=== PATIENT | male | born 1980 | race Caucasian/White ===

== ENCOUNTER 2022-02-24 09:46 | Emergency (ER) | payer OTHER, SELFPAY ==
--- NOTE | 2022-02-24 09:53 | ED.URI ---
HPI - URI/Sore Throat General Chief Complaint: Upper Respiratory Infection Stated Complaint: + COVID/FEVER/HEADACHE Time Seen by Provider: 02/24/22 09:53 Source: patient and RN notes reviewed History of Present Illness HPI Narrative: Patient is a 41-year-old male who presents the urgent care with complaints of sore throat, fatigue and possible dehydration. Patient states that he was symptomatic and tested positive for COVID on Tuesday after a direct exposure. Patient states he has been taking Tylenol and ibuprofen and the fevers have decreased along with the persistent headache. Patient states he was nauseated and vomiting a couple days ago which is since improved. Patient states his biggest concern is dehydration due to the inability to swallow. Patient denies of any shortness of breath or chest pain. No other acute complaints. No acute distress noted. Patient aware of the plan of care. Some parts of this dictation were generated by voice recognition software and may contain typographical and/or grammatical inaccuracies. Related Data Home Medications Medication Instructions Recorded Confirmed ascorbic acid (vitamin C) 500 mg 500 mg PO DAILY 06/29/21 12/04/21 tablet (Vitamin C) vitamin B complex (B 1 tablet PO DAILY 06/29/21 12/04/21 Complex-Vitamin B12 tablet) Allergies Allergy/AdvReac Type Severity Reaction Status Date / Time pertussis vaccine,fluid Allergy Intermediate Nausea and Verified 12/04/21 08:53 Vomiting Tetanus Vaccines and Toxoid Allergy Unknown Fever Verified 12/04/21 08:53 Review of Systems Review of Systems: CONSTITUTIONAL: Reports of low-grade fevers and fatigue EYES: Denies visual changes, redness, or discharge. ENT: Denies rhinorrhea, congestion, otalgia. Reports of severe sore throat CARDIOVASCULAR: Denies chest pain, palpitations, or edema. RESPIRATORY: Denies cough or dyspnea. GASTROINTESTINAL: Denies abdominal pain, nausea, vomiting, or diarrhea. GENITOURINARY: Denies dysuria or hematuria. SKIN: Denies rash or itching. MUSCULOSKELETAL: Denies back pain, joint pain, or myalgia. NEUROLOGIC: Denies headache, numbness, or weakness. All other systems reviewed are negative, except as documented in HPI. [facility] Past Medical History Medical History Abdominal pain, LUQ Acute non-recurrent sinusitis Allergic reaction Anaphylaxis Change in bowel function Chronic fatigue Diverticulitis w/ rupture & small abscess formation Left lower quadrant pain Rash Splenomegaly Surgical History Surgical History History of hernia repair History of inguinal hernia repair History of placement of ear tubes Hx of knee surgery Status post arthroscopy of hip Family History Family History Father Family history of cardiovascular disease Hypertension Grandparent Family history of cardiovascular disease Other Family history of lung cancer Family history of malignant neoplasm of brain Social History Social History Smoking status: Never smoker Second hand tobacco smoke exposure: No Alcohol intake: current Drinks per week: 6 Alcohol use details: consumes 3 miguel rarely Substance use: never Substance use type: does not use Gender identity (if verbalized by the patient): Male Spiritual care concerns: No Comments At the time of my signature, I reviewed and agree with the nursing past medical, surgical, social, and family history. There is no relevant family history pertinent to the patient complaint. Exam Narrative: GENERAL: This is a well-nourished, well-developed patient. Appears very fatigued HEAD: normocephalic, atraumatic. EYES: PERRL. Sclera clear/white. Vision is grossly intact. EARS: External ears normal, auditory canals clear and without drainage,
[2022-02-24 10:13] VITALS: BP 117/86; PULSE 88; RESP 16; TEMP 36.9; O2SAT 99
== END 2022-02-24 10:32 | disposition short-term general hospital (02) ==
PROVIDERS: Emergency Provider Nurse Practitioner Family; PCP Family Medicine
DX: U07.1 COVID-19 (principal); E86.0 Dehydration
CPT/HCPCS: 81003; 87081; 87880; 99213; G0463

== ENCOUNTER 2022-02-24 10:45 | Emergency (ER) | payer OTHER, SELFPAY ==
[2022-02-24 11:18] VITALS: BP 122/79; PULSE 86; RESP 16; TEMP 36.7; O2SAT 98
[2022-02-24 11:35] LABS: Basophils Percent Auto 0.2 % (0.2-1.2); Eosinophils Absolute Auto 0.1 K/mm3 (0-0.3); Eosinophils Percent Auto 1.6 % (0-4.4); Hematocrit 42.7 % (42.0-52.0); Immature Granulocyte Absolute 0.01 K/mm3 (0.00-0.031); Immature Granulocyte Percent A 0.2 % (0-0.5); Lymphocytes Absolute Auto 0.82 K/mm3 (0.9-3.2); Lymphocytes Percent Auto 16.4 % (18.3-44.2); Mean Corpuscular HGB Conc 35.1 g/dl (32-36); Mean Corpuscular Hemoglobin 30.9 pg (26-34); Mean Corpuscular Volume 87.9 fl (80-100); Mean Platelet Volume 10.2 fl (7.4-10.4); Monocytes Absolute Auto 0.4 K/mm3 (0.1-0.6); Monocytes Percent Auto 7.6 % (2.6-8.5); Neutrophils Absolute Auto 3.7 K/mm3 (1.3-6.7); Platelet Count Result 172 k/mm3 (150-375); Red Blood Count 4.86 M/mm3 (4.6-6.20); Red Cell Distribution Width 11.9 % (11.5-14.5)
[2022-02-24 11:45] LABS: Alanine Aminotransferase 18 U/L (6-50); Albumin Level 4.9 g/dL (3.5-5.1); Alkaline Phosphatase 49 U/L (38-126); Anion Gap 16 mmol/L (8-16); Aspartate Amino Transferase 28 U/L (17-59); Bilirubin,Total 0.9 mg/dL (0.2-1.3); Blood Urea Nitrogen 11 mg/dL (9-20); Calcium 9.4 mg/dL (8.4-10.2); Carbon Dioxide 25 mmol/L (22-30); Chloride 96 mmol/L (98-107); Estimated CRCL calculation 113 ml/min; Estimated Glomerular Filt Rate > 60; Glucose 103 mg/dL (65-110); Lipase 32 U/L (23-300); Potassium 4.6 mmol/L (3.4-5.0); Sodium 137 mmol/L (137-145)
--- NOTE | 2022-02-24 12:26 | ED.URI ---
HPI - URI/Sore Throat General Chief Complaint: Upper Respiratory Infection Stated Complaint: covid +, dehydration Time Seen by Provider: 02/24/22 12:06 History of Present Illness HPI Narrative: Pt presents with URI symptoms for one week. Pt started with nasal congestion and CHAPMAN a week ago and a fever. Pt tested positive for covid 5 days ago. Pt says he has had some episodes of vomiting but has had trouble drinking enough fluids due to sore throat. Pt tested negative for strep at [facility] last week. Related Data Allergies Allergy/AdvReac Type Severity Reaction Status Date / Time pertussis vaccine,fluid Allergy Intermediate Nausea and Verified 02/24/22 11:22 Vomiting Tetanus Vaccines and Toxoid Allergy Unknown Fever Verified 02/24/22 11:22 Review of Systems Review of Systems: All systems reviewed & are unremarkable except as noted in HPI and below Constitutional: Constitutional: Reports chills, Reports fatigue and Reports fever(s) ENT: Reports as per HPI, Reports nasal congestion and Reports sore throat Gastrointestinal: Gastrointestinal: Reports nausea and Reports vomiting Musculoskeletal: Musculoskeletal: Reports myalgias PMFSH Past Medical History Medical History Abdominal pain, LUQ Acute non-recurrent sinusitis Allergic reaction Anaphylaxis Change in bowel function Chronic fatigue Diverticulitis w/ rupture & small abscess formation Left lower quadrant pain Rash Splenomegaly Surgical History Surgical History History of hernia repair History of inguinal hernia repair History of placement of ear tubes Hx of knee surgery Status post arthroscopy of hip Family History Family History Father Family history of cardiovascular disease Hypertension Grandparent Family history of cardiovascular disease Other Family history of lung cancer Family history of malignant neoplasm of brain Social History Social History Smoking status: Never smoker Second hand tobacco smoke exposure: No Alcohol intake: current Drinks per week: 6 Alcohol use details: consumes 3 miguel rarely Substance use: never Substance use type: does not use Gender identity (if verbalized by the patient): Male Spiritual care concerns: No Exam Const: General: healthy appearing Nutritional Appearance: well nourished Orientation/consciousness: patient oriented x3 Limitations: no limitations HENMT: Head: normal to inspection Mouth: Yes Normal oral and palatal mucosa present and Yes dry mucous membranes Throat: uvula midline Other: mild erythema no swelling or exudate in post pharynx Eyes: EOM: EOMs intact bilaterally Neck: Neck: normal visual inspection and lymphadenopathy (anterior cervical adenopathy l > r) Resp: Effort & Inspection: normal respiratory effort Auscultation: clear to auscultation bilaterally Cardio: Rate: regular rate Rhythm: regular rhythm GI: GI Palp: Yes Soft to palpation Auscultation: normal bowel sounds Skin: General skin exam: normal color Rashes: no rashes Neuro: General: patient oriented x3 Cranial nerves: Yes Nystagmus not present Speech: normal speech Extrem: General: normal to inspection and no clubbing, cyanosis or edema Psych: Mental Status: mental status grossly normal Affect: normal affect Attitude: cooperative Course Vital Signs Vital signs: Vital Signs Temperature 98.0 F 02/24/22 11:18 Pulse Rate 86 02/24/22 11:18 Respiratory Rate 16 02/24/22 11:18 Blood Pressure 122/79 02/24/22 11:18 Pulse Oximetry 98 02/24/22 11:18 Oxygen Delivery Room Air 02/24/22 11:18 Temperature 98.0 F 02/24/22 11:18 Pulse Rate 80 02/24/22 14:12 Respiratory Rate 16 02/24/22 14:12 Blood Pressure 136/84 02/24/22 14:12 Pulse Oxim
[2022-02-24] MEDS: SODIUM CHLORIDE 0.9% IV 1,000 ML 999 ML IV CONT (12:27)
[2022-02-24] MEDS: KETOROLAC 30 MG/ML VIAL (*BKC) IV PUSH (12:28)
[2022-02-24] MEDS: ONDANSETRON INJ 4 MG/2 ML VIAL IV PUSH (12:28)
[2022-02-24 12:37] LABS: Mucus Urine Heavy /lpf; WBC Urine 0-3 /hpf
[2022-02-24 12:41] LABS: Add Urine Microscopic? YES; Appearance Urine Clear (Clear); Bilirubin Urine 2+ (Negative); Blood Urine Trace-lysed (Negative); Color Urine Dark Yellow (Yellow); Glucose Urine UA Negative (Negative); Ketones Urine 4+ mg/dL (Negative); Leukocyte Esterase Ur Negative LEU/UL (Negative); Nitrate Urine Negative (Negative); Protein Urine 1+ mg/dL (Negative); Specific Grav Ur 1.025 (1.001-1.035)
[2022-02-24 12:54] VITALS: BP 144/86; PULSE 84; RESP 16; O2SAT 98
[2022-02-24 14:12] VITALS: BP 136/84; PULSE 80; RESP 16; O2SAT 99
== END 2022-02-24 14:15 | disposition home or self-care (01) ==
PROVIDERS: Emergency Medicine; Emergency Provider Emergency Medicine; PCP Family Medicine
DX: U07.1 COVID-19 (principal); R53.82 Chronic fatigue, unspecified
CPT/HCPCS: 36415; 80053; 81001; 81003; 83690; 85025; 87081; 87880; 96361; 96374; 96375; 99284; J1885; J2405; J7030

== ENCOUNTER 2023-05-05 10:55 | Outpatient (CLI) | payer OTHER, SELFPAY ==
--- NOTE | ~2023-05-05 | XR_ITS ---
Left Hand Technique: PA, oblique, and lateral views were obtained. Clinical History: Injury Findings: No acute fracture or dislocation is seen. Osseous alignment is anatomic. Joint spaces are p reserved. Soft tissues are unremarkable. Impression: Unremarkable left hand. Reviewed, dictated and finalized at location M. [employer]BI[employer] COUNSELOR Impression: Unremarkable left hand.
== END 2023-05-05 10:56 | disposition home or self-care (01) ==
PROVIDERS: PCP Family Medicine; Visit Provider Physician Assistant
DX: S69.90XA Unspecified injury of unspecified wrist, hand and finger(s), initial encounter (principal); X58.XXXA Exposure to other specified factors, initial encounter
CPT/HCPCS: 73130

== ENCOUNTER 2023-09-01 13:00 | Outpatient (RCR) | payer OTHER, SELFPAY ==
--- NOTE | 2023-06-07 08:40 | OTOPEVAL1 ---
Assessment and note entered by CAMDEN Matta/Rick, CHT Evaluation Information Diagnosis Strain of muscle, fascia, and tendons at wrist and hand Subjective Information Pt fell about 8 weeks ago and his left ring and small fingers were bent back backwards. He received a steroid injection 06/01/23 with some relief. He is right handed. 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 Lots of hand use. He reports pain with gripping and when the fingers are suddenly bumped or pushed unexpectedly in the plane of the palm, like when his ring finger accidently bumps the blinker when driving. Reported Pain Level Pain Score 3: Self Report Additional Pain Score Comments Reports hand pain never goes away, typically at a constant 3/10. Reports burning and aching. No reports of paresthesias. Assessment OT Clinical Summary Patient referred to OT with left hand sprain. He presents with difficulties related to intrisic activation/use. Instructed in ROM HEP and the use of heat/ice. Continued follow up indicated to progress HEP, continued use of modalities, manaual tx, and therapeutic exercise to facilitate optimal functional hand use and strength. Plan of Care Interventions Therapeutic Exercise,Manual Therapy,Therapeutic Activities,Hot Pack/Cold Pack,Paraffin OT Services Indicated Yes Treatment Frequency and 1-2x/week for 4 weeks Duration These treatments will address the objective and functional deficits as defined above. The patient will be advanced safely and appropriately in order for the patient to progress towards his/her prior level of function. Additional exercises will be introduced and as well as a comprehensive home exercise program upon discharge, if needed, ?to ensure carryover of functional gains achieved in the clinic. This treatment plan has been reviewed and agreement upon by the patient.
--- NOTE | 2023-06-07 08:41 | OPREHPOC ---
Outpatient Therapy Plan of Care This is a Multidisciplinary Plan of Care that may contain components documented by all disciplines (PT, OT, and ST.) OT Problem 1 OT Problem #1 Knowledge Deficit OT Goal 1 Goal 1. Patient to be independent with instructed materials. Target Visit 8 OT Problem 2 OT Problem #2 Pain OT Goal 1 Goal 1. Patient to report reduced left hand pain to 5/ 10 at worst during ADLs/use. Target Visit 8 OT Problem 3 OT Problem #3 Impaired Strength OT Goal 1 Goal 1. Patient to be able to complete construction grip, pinch, and intrinsic strengthening of the left hand with yellow theraputty x5 minutes without reports of pain. Target Visit 8
--- NOTE | 2023-07-08 11:46 | OTOPPROG ---
Assessment and note entered by Arcadio Mills, CAMDEN/Rick, CHT Progress Update 07/08/23 Diagnosis Strain of muscle, fascia, and tendons at wrist and hand Subjective Information Pt fell about 12 weeks ago and his left ring and small fingers were bent back backwards. He received a steroid injection 06/01/23 with some relief. He is right handed. Reports some progress, but states his hand is still painful. 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 He states he had a recent incident where his small finger was suddenly pulled into abduction and he feels like this really has set him back. 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 ROM of the left hand has made excellent progress. A gross fist has returned to normal limits. A hook fist is slightly limited, measuring a 1 cm gap between the finger tips of ring and small and the DPC. Passively we are able to achieve full ROM. Unable to tolerate resisted adduction to the small finger and has difficulty fully adducting the small finger. Assessment OT Clinical Summary Patient referred to OT with left hand sprain. He has been making progress with reduced pain and improved hand use, but unfortunately appears to have restrained the small finger this last week. He continues to have difficulties with finger adduction as well as intrinsic tightness. Continued follow up indicated to progress HEP, continued use of modalities, manual tx, and therapeutic exercise to facilitate optimal functional hand use and strength. Plan of Care Interventions Therapeutic Exercise,Manual Therapy,Therapeutic Activities,Hot Pack/Cold Pack,Paraffin OT Services Indicated Yes Treatment Frequency and 1x/week for 4 weeks Duration These treatments will address the objective and functional deficits as defined above. The patient will be advanced safely and appropriately in order for the patient to progress towards his/her prior level of function. Additional exercises will be introduced and as well as a comprehensive home exercise program upon discharge, if needed, ?to ensure carryover of functional gains achieved in the clinic. This treatment plan has been reviewed and agreement upon by the patient.
--- NOTE | 2023-07-19 13:40 | PCOTNOTE ---
Patient did not show up for scheduled appointment this date. Patient called and reports he didn't realize his appointment was today.
--- NOTE | 2023-08-04 11:16 | OTOPPROG ---
Assessment and note entered by CAMDEN Matta/Rick, CHT Progress Update 08/04/23 Assessment Status Progress Diagnosis Strain of muscle, fascia, and tendons at wrist and hand Subjective Information Pt fell about 16 weeks ago and his left ring and small fingers were bent back backwards. He has received a steroid injections with some relief, but he continues to have intermittent pain. 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 Especially with adduction of the small finger. He is unable to tolerate resisted adduction of the small finger due to pain. He is elzbieta taping the fingers during the day, ~6 days a week. He had an instance of sharp pain, 01/03, last weekend when shaking water off his hands. Since then he has been waking up at night with increased pain, having to use ibuprofen and a heating pad to get back to sleep. ROM of the left hand has made excellent progress. A gross fist has returned to normal limits. A hook fist has also now returned to normal limits. Unable to tolerate resisted adduction to the small finger and has difficulty fully adducting the small finger. Pension Agent strength improved from 96 lbs. to 113 lbs. Assessment OT Clinical Summary Patient referred to OT with left hand sprain. He has been making progress with reduced pain and improved hand use, but unfortunately appears to have restrained the small finger this last week. He has progressed to normal ROM and is now able to adduct the small finger, but continues to be unable to tolerate any resistance to the small finger. Continued follow up indicated to progress HEP, continued use of modalities, manual tx, and therapeutic exercise to facilitate optimal functional hand use and strength. Plan of Care Interventions Therapeutic Exercise,Manual Therapy,Therapeutic Activities,Hot Pack/Cold Pack,Paraffin OT Services Indicated Yes Treatment Frequency and 1x/week for 4 visits Duration These treatments will address the objective and functional deficits as defined above. The patient will be advanced safely and appropriately in order for the patient to progress towards his/her prior level of function. Additional exercises will be introduced and
--- NOTE | 2023-08-18 10:53 | PCOTNOTE ---
Patient called & cancelled scheduled appointment this date due to being out of town for a family emergency.
--- NOTE | 2023-09-01 14:59 | OTOPPROG ---
Assessment and note entered by Arcadio Mills, CAMDEN/Rick, CHT Progress Update 09/01/23 Diagnosis Strain of muscle, fascia, and tendons at wrist and hand Subjective Information Pt fell about 20 weeks ago and his left ring and small fingers were bent back backwards. He has received a steroid injections with some relief. He reports he continues to regularly use ice and heat for relief. He reports his hand is feeling the best it's felt so far. He continues to wake up 5-6 nights a week with hand pain, severe enough that he has to get up to take ibuprofen and get a heating pad. He has progressed past elzbieta taping, hasn't taped in 2 weeks. This has tapered down from regularly elzbieta taping 6 days/week. He's noticing improvement with being able to type for longer periods without sharp pain. Progress noted in the last month: Patient is now able to tolerate resisted finger adduction. Finger adduction has improved to 3+/5. Gross finger flexion is WNL. He is reporting residual tightness in the ring finger PIP joint when making a hook fist. Assessment OT Clinical Summary Patient referred to OT with left hand sprain, symptoms are consistent with intrinsic sprain. He has been making steady progress with therapy. He has been benefitting from the use of modalities, manual therapy, and kinesiotape to the hand. He has progressed to having no pain at rest, but continues to have increased pain with resisted intrinsic use. Gross gripping has returned to normal limits. Hook fist has some residual tightness, but is overall improving. Continued skilled OT indicated to progress HEP, continued use of modalities, manual tx, and therapeutic exercise to facilitate optimal functional hand use and strength. Plan of Care Interventions Therapeutic Exercise,Manual Therapy,Therapeutic Activities,Hot Pack/Cold Pack,Paraffin OT Services Indicated Yes Treatment Frequency and 1x/week for 3 visits Duration These treatments will address the objective and functional deficits as defined above. The patient will be advanced safely and appropriately in order for the patient to progress towards his/her prior level of function. Additional exercises will be introduced and as well as a comprehensive home exercise program upon discharge, if needed, ?to ensure carryover of functional gains achieved in the clinic. This treatment plan has been reviewed and agreement upon by the patient.
--- NOTE | 2023-09-08 14:13 | PCOTNOTE ---
This treatment is being continued on visit number [id number]. Please see documentation on both accounts to view progress. Completed interventions, outcomes, and problems have been marked as Inactive to facilitate the copying of the Care plan routine for recurring accounts.
== END 2023-09-05 23:59 | disposition home or self-care (01) ==
LOC: ANHGOSHOT 13:00
PROVIDERS: PCP Family Medicine; Visit Provider Plastic Surgery
DX: S66.812D Strain of other specified muscles, fascia and tendons at wrist and hand level, left hand, subsequent encounter (principal)
CPT/HCPCS: 97018; 97035; 97110; 97140; 97165; 99199

== ENCOUNTER 2023-09-22 09:30 | Outpatient (RCR) | payer OTHER, SELFPAY ==
--- NOTE | 2023-09-08 14:12 | PCOTNOTE ---
The treatment documented on this account is a continuation of the treatment documented on visit number [id number]. Please see documentation on both accounts to view progress. The Plan of Care has been transitioned and updated within the new V#. I have addressed and agree with the discipline specific Problems, Interventions, and Goals for the current certification period. Completed interventions, outcomes, and problems have been marked as Inactive to facilitate the copying of the Care plan routine for recurring accounts.
--- NOTE | 2023-09-22 11:41 | OTOPDC ---
Assessment and note entered by Arcadio Mills, CAMDEN/Rick, CHT OT Discharge Summary 09/22/23 Diagnosis Left hand intrinsic muscle strain Subjective Information Pt fell about 23 weeks ago and his left ring and small fingers were bent back backwards. He has received a steroid injections with some relief. He reports he continues to regularly use ice and heat for relief. He reports his hand is feeling the best it's felt so far. He began wearing a compression glove at night and no longer wakes up with pain several times a night. He has tapered off elzbieta taping and has been trying to use his hand as normally as possible. Continues to feel limited with being able to work out or the force/ impact of swinging a golf club or playing catch with his nephew. Progress noted in the last month: Patient is now able to tolerate resisted finger adduction. Finger adduction has improved to 4/5. Gross finger flexion is WNL. He is reporting residual tightness in the ring and middle finger PIP joint when making a hook fist. 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 Reported Pain Level Pain Score 0: Self Report Additional Pain Score Comments Patient reports typically no pain at rest. Pain can increase to 5/10 with resisted finger abduction and adduction. Assessment OT Clinical Summary Cameron has been participating in hand therapy since May for an intrinsic muscle strain of the left hand. Therapy has progressed well, but slowly , however. He has progressed to being able to complete strengthening of the intrinsic muscles with some residual discomfort, but overall his strength has returned to functional limits. He has progressed to no longer having severe pain at night that wakes him up multiple times a night. He continues to present with residual edema and inflammation in the hand, which is temporarily relieved from therapeutic intervention. Modalities and k-tape have appeared to be the biggest benefit. At this time it appears he has reached his maximal benefit from therapy. He is currently independent with all materials. Discharging with HEP. Plan of Care OT Services Indicated No
== END 2023-09-22 13:29 | disposition home or self-care (01) ==
LOC: ANHGOSHOT 09:30
PROVIDERS: PCP Family Medicine; Visit Provider Plastic Surgery
DX: S66.812D Strain of other specified muscles, fascia and tendons at wrist and hand level, left hand, subsequent encounter (principal)
CPT/HCPCS: 97018; 97035; 97110

== ENCOUNTER 2023-10-20 09:49 | Outpatient (CLI) | payer OTHER, SELFPAY ==
--- NOTE | ~2023-10-20 | MR_ITS ---
EXAMINATION: MR hand LT wo/w con DATE: 10/20/2023 10:39 INDICATION: Left hand pain and swelling in the region of the third and fourth fingers and metacarpals post injury. Straightening of other unspecified muscles, fascia and tendons. TECHNIQUE: Magnetic resonance imaging (MRI) of the left hand was performed without and with 18 mL Mul tihance intravenous contrast. Sequences included axial, sagittal and coronal T1-weighted FSE and T2-w eighted FS FSE, axial T1-weighted FS FSE and postcontrast axial, sagittal and coronal T1-weighted FS FSE. COMPARISON: Radiographs dated 05/15/2023 FINDINGS: Bone alignment is normal. Normal marrow signal throughout with no fracture, reactive edema or patholo gic marrow replacing process. Joint spaces appear normal with no joint effusions. The flexor and exte nsor tendons are normal. Intrinsic musculature of the hand is normal. There is thickening and mild in creased signal and enhancement of the proper an accessory components of the radial collateral ligamen t complex of the fourth metacarpophalangeal joint consistent with moderate grade sprain/partial tear which remains without a discernible fluid signal intensity tear defect. Similarly there is mild thick ening, increased fluid signal and enhancement along the accessory ulnar collateral ligament at the th ird metacarpophalangeal joint also consistent with moderate grade sprain/partial tear without discret e fluid signal intensity tear defect. IMPRESSION: 1. Moderate grade sprain/partial tears of the radial collateral ligament complex at the fourth metaca rpophalangeal joint and of the accessory ulnar collateral ligament at the third metacarpophalangeal j oint. Reviewed, dictated and finalized at location A. IMPRESSION: 1. Moderate grade sprain/partial tears of the radial collateral ligament comple x at the fourth metacarpophalangeal joint and of the accessory ulnar collateral ligament at the third metacarpophalangeal joint.
== END 2023-10-20 09:50 ==
LOC: MICIMG 09:50
PROVIDERS: PCP Physician Assistant Surgical; Visit Provider Physician Assistant Surgical
DX: S53.22XD Traumatic rupture of left radial collateral ligament, subsequent encounter (principal); X58.XXXD Exposure to other specified factors, subsequent encounter
CPT/HCPCS: 73220; A9577